=== PATIENT | female | born 1995 | race Caucasian/White ===

== ENCOUNTER 2021-07-01 17:13 | Inpatient (IN) | payer OTHER ==
[~2021-07-01] VITALS: Ht 162.6 cm; Wt 92.5 kg
[~2021-07-01 17:13] MED LIST: PRENATAL VITAM1 EACH PO
--- NOTE | 2021-07-01 18:42 | PR ---
[facility] [address], [place] [address] Signed Progress Notes IP Datetime Report Generated by CPN: 07/01/2021 18:41 PROGRESS NOTES: [id number] Other Impressions: Demise Procedures: Sterile Vag Exam Plan: Deliver- Section Informed Consent Obtain: Section Delivery VITAL SIGNS: [id number] Vital Signs: Reviewed; Within Normal Limits EXAM: [id number] Dilatation: 0.0 Effacement: 0 Station: -2 MEMBRANES: [id number] Membranes Status: Intact Comments: Viewed US that again demonstrates no cardiac activity. While we are awaiting official over-read from radiologist, I did review results w/ patient. Cervical exam shows cervix closed and posterior. Reviewed options including deferring delivery until a later date or proceeding with delivery now either w/ induction of labor or RLTCS. Pt strongly requesting RLTCS and we reviewed risks/benefits of each option in detail. Discussed options for chromosomal analysis w/ Anora test, placental/ cultures, placenta to pathology, and option for autopsy. Ancef 2g IV ordered. All questions answered to best of my ability and to patient's apparent satisfaction. FETUS A: [id number] FHR Baseline: 0 Presentation: Vertex Comments on Fetus A: demise FETUS B: [id number] Signing Physician: Octavio Schmitz DO Copies: ~ *Electronically Signed* 07/01/21 2894 OCTAVIO SCHMITZ DO PATIENT NAME: MAXI MYLES PROGRESS NOTE DATE OF : [birth year] PHYSICIAN: OCTAVIO SCHMITZ DO [facility] #: [id number] REPORT IS CONFIDENTIAL AND NOT TO BE RELEASED WITHOUT AUTHORIZATION
--- NOTE | 2021-07-01 18:49 | NUR ---
RT COLLECTED COVID 19 SWAB WITH NO COMPLICATIONS. RT USED THE CEPHEID RAPID TEST THROUGH IN HOUSE LAB PER DR REQUEST AT THIS TIME.
--- NOTE | 2021-07-01 20:53 | NUR ---
07/01/212052 Dania Flores 2044: PT ARRIVES TO [facility] ROOM 104. AND BABY ARE ALREADY IN THE ROOM. DELMA PEREZ IS HERE TO TAKE PHOTOS FOR THE FAMILY. PT IS REPORTING SOME SHARP PAIN IN THE LOWER ABDOMEN, SHE FEELS HER FUNDAL CHECKS, RATING THE PAIN ABOUT A 7/10 WITH THE FUNDAL CHECK, 5/10 OTHERWISE. NO NAUSEA AT THIS TIME.
--- NOTE | 2021-07-01 21:39 | NUR ---
IT SERVICE DELIVERY MANAGER, DR DELVIN HYATT NOTIFIED OF DEMISE VIA TELEPHONE. DR HYATT PLANS TO CALL DR ARCE.
--- NOTE | 2021-07-02 09:04 | PR ---
[facility] [address] [place], [place] [address] Signed PP Progress Notes Datetime Report Generated by NICOLE: 07/02/2021 09:03 SUBJECTIVE: [id number] Pain: Within Normal Limits Nausea/Vomiting: Denies Vital Signs: [id number] Vital Signs: Reviewed; Within Normal Limits EXAM: Ongoing Cardiovascular: Normal Respiratory: Normal Abdomen/Uterus: Normal Lochia: Normal CVA Tenderness: Normal Extremities: Normal Incision: Normal Progress: Not Applicable Exam Comments: Fundus firm U-2 nontender. Incision clean, dry, intact IMPRESSION/PLAN/PROCEDURES: [id number] Impression: Normal Progression Plan: Discharge Progress Notes: Pt seen and evaluated. Ambulating and tolerating full diet. Pérez cath in place. No fevers, chills, lightheadedness, or other maternal concerns. Hgb 11.2. Reviewed demise in detail, including surgical findings (normal fetus, amniotic fluid, placenta, and uterus), Anora chromosomal analysis pending, placental cultures, and placental pathology (pending). Discussed option for autopsy and pt and decline. Planning cremation of remains through [facility] [employer]. Reviewed anticipated course including normal lochia and milk coming in. Reviewed pts history of depression and remote history of alcohol use. Pt feels loved and supported by family, friends, and medical team, and has a good relationship with a therapist she has used in the past. All questions were answered to the very best of my ability and to patient and 's apparent satisfaction. F/U in 3 days with me. Signing Physician: Octavio Schmitz DO Copies: ~ *Electronically Signed* 07/02/21 0903 OCTAVIO SCHMITZ DO PATIENT NAME: MAXI MYLES PROGRESS NOTE DATE OF : [birth year] PHYSICIAN: OCTAVIO SCHMITZ DO RPT #: [id number] REPORT IS CONFIDENTIAL AND NOT TO BE RELEASED WITHOUT AUTHORIZATION
--- NOTE | 2021-07-02 12:43 | NUR ---
Called by Frederic Ahn evening of 07/01 who alerted me to demise, but indicated family wished for some time with baby and did not desire pastoral care. Notified morning of 07/02 that family was ready for baby to go to home. Called [facility] at family request.
--- NOTE | 2021-07-07 13:15 | PATH ---
[facility] [address], [place] [address] Signed SPECIMEN(S): A PLACENTA SPECIMEN SOURCE: A. PLACENTA CLINICAL HISTORY: Mother's age: 28. OB history: A0. Gestational age: 37 and 6/7. Infant's weight: 7-11. score: 0. Rh positive. Antibody screen: Negative. Maternal serologies: Rubella immune, RPR non-reactive, hepatitis screen negative, GBS negative. Specific issues of concern: Stillborn. FINAL PATHOLOGIC DIAGNOSIS: Placenta, third trimester: - Swain placenta, appropriate weight for stated gestational age of 37 weeks, 6 days. - Umbilical cord: Three-vessel umbilical cord with no histopathologic abnormality. - membranes: No histopathologic abnormality. - Placental disc: Chorionic villi with mature villous morphology. NAL:cml:C2NR MICROSCOPIC EXAMINATION: Histologic sections of all submitted blocks are examined by light microscopy. These findings, together with the gross examination, support the pathologic diagnosis. GROSS DESCRIPTION: The specimen, labeled "Ruy Fleming, placenta," is received fresh and placed in formalin and consists of swain discoid placenta with the following parameters: Umbilical cord: Insertion eccentric, measurement 24.1 x 1.5 cm; trivascular. Cord coiling index (per 10 cm): 2. Lesions: Not grossly identified. Membranes: Insertion site: Marginal, pink and translucent, rupture site grossly unremarkable. Fragmented. Other: Not grossly identified. Chorionic Plate: Normal radiating vascular pattern, blue-purple and shiny. Lesions: Not grossly identified. Other: One defect is present at the placental margin measuring 3.5 cm in greatest dimension. Maternal Surface: Normal cotyledons, fragmented. Lesions: Not grossly identified. PATIENT NAME: MAXI FLEMING PATHOLOGY DATE OF : [birth year] REPORT #: [id number] PHYSICIAN: [facility] PCP: LISA CRUZ PA-C REPORT IS CONFIDENTIAL AND NOT TO BE RELEASED WITHOUT AUTHORIZATION [facility] [address], [place] [address] Signed Measurement: 21.5 x 18.4 x 2.6 cm. Weight (trimmed): 376 g Cut Surface: Maroon and spongy. Lesions: Not grossly identified. Basal plate fibrin 0.1 cm in thickness. Other Findings: Focal areas of calcification that involve less than 10% of the placenta parenchyma. Cassette Summary: (A1) membranes and umbilical cord (A2) areas of calcification (A3) placenta parenchyma (A4) placenta parenchyma FB (under the direct supervision of a pathologist) The Gross Description was prepared using a voice recognition system. The report was reviewed for accuracy; however, sound-alike word errors, addition and/or deletions may occur. If there is any question about this report, please contact Client Services. PERFORMING LABORATORY: The technical component was performed by [facility], [address] [place] [id number] (Supervisor Special Services: Nicole Reid MD; CLIA# [id number]). [facility] [address] [place] [address] (CLIA# [id number]). Diagnostician: Danielle Kenney MD Pathologist Electronically Signed 07/07/2021 Copies: ~ PATIENT NAME: MAXI FLEMING PATHOLOGY DATE OF : [birth year] REPORT #: [id number] PHYSICIAN: [facility] PCP: LISA CRUZ PA-C REPORT IS CONFIDENTIAL AND NOT TO BE RELEASED WITHOUT AUTHORIZATION
--- NOTE | 2021-07-14 13:04 | OR ---
[facility] [address] [place], [place] [address] Signed DATE OF OPERATION: 07/01/2021 SURGEON: Octavio Schmitz DO PREOPERATIVE DIAGNOSES: 1. Intrauterine at 37 weeks and 6 days gestation. 2. demise. 3. History of prior . POSTOPERATIVE DIAGNOSES: 1. Intrauterine at 37 weeks and 6 days gestation. 2. demise. 3. History of prior . PROCEDURE PERFORMED: Repeat low transverse delivery. ANESTHESIA: Spinal followed by TAP block. GLOVE SEWER: Aminata Kovacs DO COMPLICATIONS: None. ESTIMATED BLOOD LOSS: 500 mL. DRAINS: Pérez catheter. FINDINGS: Delivery of nonviable male in the CLAUDY position with grossly normal anatomy. Normal umbilical cord with normal Bradley's jelly. No nuchal cord, true knot, or or other umbilical cord abnormalities noted. Clear nonmalodorous amniotic fluid. Placenta normal with centrally inserted three-vessel cord with no evidence of abruption. Normal uterus, tubes, and ovaries. No pelvic or abdominal adhesions. Electronically Signed By: OCTAVIO SCHMITZ DO 07/14/21 1304 PATIENT NAME: MAXI FLEMING OPERATIVE REPORT DATE OF : [birth year] REPORT #: [id number] PHYSICIAN: OCTAVIO SCHMITZ DO PCP: DEDRA MULLEN PA-C REPORT IS CONFIDENTIAL AND NOT TO BE RELEASED WITHOUT AUTHORIZATION [facility] [address] [place], [place] [address] Signed INDICATIONS: Ms. Fleming is a pleasant 26-year-old G2, P1-0-0-1 white female with intrauterine at 37 weeks 6 days gestation, who presented to Labor and Delivery reporting no movement x4 hours. complicated only by history of depression, history of prior , and enlarged thyroid with benign-appearing nodules on ultrasound and normal thyroid hormone. The patient had been seen in the office on 06/28 with normal growth and heart rate. The patient reports decreased movement with no contractions, vaginal bleeding, discharge, trauma, or other abnormalities. heart rate was unable to be ascertained per Doppler. Physician was called urgently to perform limited bedside ultrasound. I performed a limited bedside ultrasound which demonstrated no cardiac activity. An official ultrasound was then performed that confirmed intrauterine demise. We reviewed options in detail, and the patient wishes to proceed with repeat low transverse delivery. Risks, benefits, and alternatives were discussed in detail. The patient understands and wished to proceed with the procedure. TECHNIQUE: The patient was taken to the operating room where a time-out was performed to confirm correct patient and correct procedure. Spinal anesthesia was adequately established. The patient was prepped and draped in the supine position with a bump on the right hip. After a Pérez catheter was inserted and spinal anesthetic was confirmed to be adequate, a Pfannenstiel skin incision was made using surgical scalpel through the previous Pfannenstiel scar. Incision was carried down to the fascia and fascia was nicked in the midline and fascial incision was extended bilaterally using curved Orourke scissors. The fascia was grasped with Sagar's, elevated, and the underlying rectus muscles dissected bluntly and sharply with curved Orourke scissors. The rectus was then divided in the midline. The peritoneum was grasped with hemostat, elevated, and entered sharply. Peritoneal incision was extended bilaterally using sharp and blunt dissection. Survey of the abdomen and pelvis was performed which demonstrates normal appearing uterus and lower uterine segment with no pelvic or abdominal adhesions. An Bryce self retractor was placed and hysterotomy was performed using a surgical scalpel in the lower uterine segment. Hysterotomy was extended bilaterally using blunt dissection. The amniotic membranes were ruptured for clear nonmalodorous fluid. The vertex was elevated into the abdomen, delivered with the assistance of fundal pressure. Nonviable male was then delivered and inspected with no gross abnormalities or defects noted with normal appearance of the cord, placenta, and fetus. The cord was doubly clamped and cut and the baby was handed to the waiting pediatric team. Cord blood was obtained for routine analysis. A section of the cord was retained for chromosomal testing. The placenta was then expressed intact with a centrally inserted three-vessel cord and cultures of the maternal and sides were sent for Gram stain, aerobic and anaerobic cultures. The uterus was cleared of any remaining products of conception or clot. Hysterotomy was then repaired using 0 Monocryl in two layers with the 1st being a Electronically Signed By: OCTAVIO SCHMITZ DO 07/14/21 1304 PATIENT NAME: MAXI FLEMING OPERATIVE REPORT DATE OF : [birth year] REPORT #: [id number] PHYSICIAN: OCTAVIO SCHMITZ DO PCP: DEDRA MULLEN PA-C REPORT IS CONFIDENTIAL AND NOT TO BE RELEASED WITHOUT AUTHORIZATION [facility] [address] [place] [address] Signed running locked layer and the 2nd a vertical imbricating layer. A small amount of oozing was noted that was made hemostatic with figure of eight of Monocryl and judicious use of Bovie electrocautery. The pelvis was irrigated and found to be hemostatic and excellent uterine tone was noted after administration of Pitocin per protocol. Normal bilateral tubes and ovaries. After ensuring hemostasis, ACell sheet was applied to the lower uterine segment and peritoneum was reapproximated using 2-0 Vicryl in a running nonlocked manner. Rectus muscles made hemostatic with judicious use of Bovie electrocautery and rectus muscles were plicated in the midline loosely with 0 Vicryl interrupted sutures. ACell powder was applied to the rectus sheath and the fascia was then reapproximated using 0 Vicryl in a running nonlocked manner. Subcu was irrigated and made hemostatic with Bovie electrocautery. Subcu was reapproximated in two layers with 3-0 Vicryl in a running nonlocked manner and then skin was reapproximated with a 4-0 Quill in a running subcuticular stitch with excellent hemostasis and cosmesis. The uterus was Crede'd for scant amount of blood. The patient was then taken to the PACU in good and stable condition. Sponge, needle, and instrument count was correct x2 at the end of the procedure. Dr. Kovacs was present and participated in all portions of the procedure. Again, no obvious cause for demise was noted. Octavio Schmitz DO JDW/MODL /[id number] cc: Dedra Mullen PA-C Copies: DEDRA MULLEN PA-C ~ Electronically Signed By: OCTAVIO SCHMITZ DO 07/14/21 1304 PATIENT NAME: MAXI FLEMING OPERATIVE REPORT DATE OF : [birth year] REPORT #: [id number] PHYSICIAN: OCTAVIO SCHMITZ DO PCP: DEDRA MULLEN PA-C REPORT IS CONFIDENTIAL AND NOT TO BE RELEASED WITHOUT AUTHORIZATION
== END 2021-07-02 13:15 | disposition home or self-care (01) | DRG 788 ==
LOC: FBCO 17:13 → FBC 18:15
PROVIDERS: ADMIT Obstetrics & Gynecology; ATTEND Obstetrics & Gynecology
PROC: 10D00Z1 Extraction of Products of Conception, Low, Open Approach (ICD-10-PCS; principal; 2021-07-01 19:44)
DX: O36.4XX0 Maternal care for intrauterine death, not applicable or unspecified (principal); Z3A.37 37 weeks gestation of pregnancy; Z37.1 Single stillbirth; Z20.822 Contact with and (suspected) exposure to COVID-19; O34.211 Maternal care for low transverse scar from previous cesarean delivery; Z87.440 Personal history of urinary (tract) infections
CPT/HCPCS: 01961; 76815; 85027; C9803; J0690; J1100; J1650; J1885; J2001; J2274; J2370; J2405; J2590; J2765; J3010; U0003

== ENCOUNTER 2022-02-03 13:22 | Emergency (ER) | payer OTHER ==
[~2022-02-03] VITALS: Ht 152.4 cm; Wt 92.5 kg
[2022-02-03] MEDS ORDERED: ONDANSETRON ODT8 MG PO (15:17)
== END 2022-02-03 15:33 | disposition home or self-care (01) ==
LOC: ED 13:22
DX: O99.611 Diseases of the digestive system complicating pregnancy, first trimester (principal); K52.9 Noninfective gastroenteritis and colitis, unspecified; Z3A.01 Less than 8 weeks gestation of pregnancy; Z87.891 Personal history of nicotine dependence; Z79.899 Other long term (current) drug therapy
CPT/HCPCS: 36415; 80053; 81001; 83690; 84702; 85025; 96374; 99284-25; J2405; J7030

== ENCOUNTER 2022-09-04 11:36 | Inpatient (IN) | payer OTHER ==
[~2022-09-04] VITALS: Ht 157.5 cm; Wt 96.2 kg
--- NOTE | ~2022-09-04 | OR ---
[facility] [address], [place] [address] Draft DATE OF OPERATION: 09/07/2022 SURGEON: Octavio Schmitz DO PREOPERATIVE DIAGNOSES: 1. Intrauterine at 38 weeks gestation. 2. History of prior caesarean section. 3. History of term stillbirth. POSTOPERATIVE DIAGNOSES: 1. Intrauterine at 38 weeks gestation. 2. History of prior caesarean section. 3. History of term stillbirth. PROCEDURE: Performed repeat low transverse delivery. ANESTHESIA: Spinal. TACK PULLER: Aminata Kovacs DO. ESTIMATED BLOOD LOSS: 500 mL. SPECIMEN: Cord blood for routine analysis. COMPLICATIONS: None. DRAINS: Pérez to gravity. FINDINGS: Delivery of a viable male in the HERACLIO position with no nuchal cord, weighing 7 pounds 8 ounces with Apgars of 9 and 9 at 1 and 5 minutes respectively. ESTIMATED BLOOD LOSS: PATIENT NAME: MAXI FLEMING OPERATIVE REPORT DATE OF : [birth year] REPORT #: [id number] PHYSICIAN: OCTAVIO SCHMITZ DO PCP: LISA CRUZ PA-C REPORT IS CONFIDENTIAL AND NOT TO BE RELEASED WITHOUT AUTHORIZATION [facility] [address] [place], [place] [address] Draft 500 mL with normal uterus, tubes, ovaries. The bladder was somewhat high-riding and a bladder flap was created and there was some scarring on the rectus, but the remainder of the abdomen and pelvis were normal. COMPLICATIONS: None. INDICATIONS: Ms. Fleming is a very pleasant 27-year-old G3, P2-0-0-1 with IUP at 38 weeks gestation, who presented to Labor and Delivery for scheduled repeat low segment transverse delivery per [facility] recommendations. Risks, benefits, and alternatives were discussed in detail with the patient. The patient understands and wished to proceed with the procedure. PROCEDURE IN DETAIL: The patient was taken to the operating room. A time-out was performed to confirm correct patient, correct procedure. Spinal anesthesia was adequately established. The patient was then prepped and draped in the supine position with a bump on the right hip. A Pérez catheter was inserted. The patient received Ancef 2 g preoperatively and no heparin was indicated. Once spinal was noted to be adequate, a Pfannenstiel skin incision was made through the prior scar and carried down to the fascia. The fascia was nicked in the midline and fascial incision was extended bilaterally using curved Orourke scissors. The rectus was grasped, elevated and the underlying rectus muscles dissected off bluntly and sharply. The rectus was then divided in the midline and peritoneum was entered sharply. Peritoneal incision was extended bilaterally using sharp and blunt dissection. The bladder was noted to be high-riding and a bladder flap was created using Metzenbaum scissors, pushing the serosa well below the lower uterine segment. The lower segment was then incised using a surgical scalpel and hysterotomy was extended bilaterally using blunt dissection. Clear fluid was noted. The surgeon's hand was placed in the uterine cavity and the head elevated into the maternal abdomen delivered with the assistance of fundal pressure. The delivered easily with no nuchal cord, was vigorous and cried upon delivery. Cord was doubly clamped and cut and handed to the waiting pediatric team for further care. Cord blood was obtained for routine analysis. Placenta was manually expressed, intact with a centrally inserted three-vessel cord. The uterine cavity was cleared of any remaining products of conception or clot. Hysterotomy was repaired in two layers using 0 Monocryl. The first being a running locked layer and the second being a running imbricating layer in the vertical manner. Uterus was made hemostatic with judicious use of Bovie electrocautery and was irrigated and found to be hemostatic. Normal uterus, tubes, and ovaries were noted. Peritoneum was then reapproximated using 2-0 Vicryl in a running nonlocked manner. Rectus was irrigated and made hemostatic using judicious use of Bovie electrocautery. Rectus was then plicated in the midline with three interrupted sutures PATIENT NAME: MAXI FLEMING OPERATIVE REPORT DATE OF : [birth year] REPORT #: [id number] PHYSICIAN: OCTAVIO SCHMITZ DO PCP: LISA CRUZ PA-C REPORT IS CONFIDENTIAL AND NOT TO BE RELEASED WITHOUT AUTHORIZATION [facility] [address] [place] [address] Draft of 0 Vicryl. Once hemostasis was appreciated fascia was reapproximated using 0 Vicryl in a running nonlocked manner. Subcu was irrigated and found to be hemostatic after G2 since use of Bovie electrocautery. Subcu was reapproximated using 3-0 Vicryl in a running nonlocked manner. Skin was reapproximated using surgical carole. The uterus was Crede'd for scant amount of blood and the patient remained for tap block per Anesthesia. Sponge, needle, and instrument counts were correct x2 at the end of the procedure. Dr. Kovacs was present and participated in all portions of procedure. Octavio Schmitz DO JDW/MODL /[id number] Copies: ~ PATIENT NAME: MAXI FLEMING OPERATIVE REPORT DATE OF : [birth year] REPORT #: [id number] PHYSICIAN: OCTAVIO SCHMITZ DO PCP: LISA CRUZ PA-C REPORT IS CONFIDENTIAL AND NOT TO BE RELEASED WITHOUT AUTHORIZATION
[~2022-09-04 11:36] MED LIST changes: +ONDANSETRON ODT8 MG PO
--- NOTE | 2022-09-07 08:43 | NUR ---
09/07/22 0842 Cris Veloz 0836- PT ARRIVES TO [facility] ROOM #105 WITH AND BABY. PT REPORTS NO PAIN OR NAUSEA. 18G IV TO THE LEFT WRIST IS INFUSING WNL WITH LR AND PITOCIN. PT'S HEAD OF BED ELEVATED SLIGHTLY. PT REPORTS NO DIZZINESS OR NAUSEA WITH THIS. RESP EVEN AND UNLABORED. OXYGEN SAT HIGH 90'S ON RA.
--- NOTE | 2022-09-08 07:11 | PR ---
[facility] [address] [facility] [place], [place] [address] Signed PP Progress Notes Datetime Report Generated by CPN: 09/08/2022 07:11 SUBJECTIVE: [id number] Pain: Within Normal Limits Nausea/Vomiting: Denies Flatus: Yes Bowel Movement: No Vital Signs: [id number] Vital Signs: Reviewed; Within Normal Limits Cardiovascular: Normal Respiratory: Normal Abdomen/Uterus: Normal Extremities: Normal Progress: Normal Exam Comments: Fundus firm U-2. and incision check not performed. Normal per RN. Hgb 9.8 IMPRESSION/PLAN/PROCEDURES: [id number] Impression: Normal Progression Plan: Continue Present Management Progress Notes: Pt seen and examined. Doing well. Ambulating, voiding, and tolerating full diet. Pain and lochia minimal. well. No concerns. Desires d/c home today or tomorrow. Signing Physician: Octavio Schmitz DO Copies: ~ *Electronically Signed* 09/08/22 07 OCTAVIO SCHMITZ DO PATIENT NAME: MAXI MYLES PROGRESS NOTE DATE OF : [birth year] PHYSICIAN: OCTAVIO SCHMITZ DO RPT #: [id number] REPORT IS CONFIDENTIAL AND NOT TO BE RELEASED WITHOUT AUTHORIZATION
== END 2022-09-08 18:05 | disposition home or self-care (01) | DRG 788 ==
LOC: FBC 09-07 04:58
PROVIDERS: ADMIT Obstetrics & Gynecology; ATTEND Obstetrics & Gynecology
PROC: 10D00Z1 Extraction of Products of Conception, Low, Open Approach (ICD-10-PCS; principal; 2022-09-07 07:30)
DX: O34.211 Maternal care for low transverse scar from previous cesarean delivery (principal); Z3A.38 38 weeks gestation of pregnancy; Z37.0 Single live birth; O99.284 Endocrine, nutritional and metabolic diseases complicating childbirth; E03.8 Other specified hypothyroidism
CPT/HCPCS: 01961; 36415; 76942; 85027; 86850; 86900; 86901; A9270; J0131; J0690; J1100; J1650; J1885; J2274; J2370; J2405; J2590; J2795; J7121